=== PATIENT | female | born 1965 | race Caucasian/White ===

== ENCOUNTER → 2018-03-27 | Outpatient (CLI) | payer BC ==
[~2018-03-27] MED LIST: AMITRIPTYLINE H10 M1 PO; CIPRO250 M1 PO; CITRATE OF MAG296 ML PO; IBUPROFEN 200200 M1 PO; MACROBID 100 M100 M1 PO; MOBIC15 MG PO
== END ==
LOC: RAD 16:47
DX: M17.11 Unilateral primary osteoarthritis, right knee (principal); E66.01 Morbid (severe) obesity due to excess calories; Z88.6 Allergy status to analgesic agent

== ENCOUNTER 2019-06-03 19:55 | Emergency (ER) | payer BC ==
[~2019-06-03] VITALS: Ht 157.5 cm; Wt 103.0 kg
[~2019-06-03 19:55] MED LIST changes: +ASPIR 8181 MG PO; +NEURONTIN 300300 M1 PO; +TYLENOL325 MG PO
[2019-06-03] MEDS ORDERED: ALEVE220 MG PO (20:04)
[2019-06-03] MEDS ORDERED: MUPIROCIN22 GM (20:05)
[2019-06-03] MEDS ORDERED: OXYCODONE-APAP1 EAC4 PO (20:05)
[2019-06-03 20:36] LABS: ABSOLUTE NEUTROPHILS 2.8 thou/uL (1.4-8.2); BASOPHILS 1.4 % (0.0-2.0); EOSINOPHILS 8.1 % (0.0-3.0); HEMATOCRIT 36.6 % (37.0-47.0); HEMOGLOBIN 12.1 gm/dL (12.0-15.0); LYMPHOCYTES 33.7 % (24.0-44.0); MCH 29.2 pg (26.0-34.0); MCHC 32.9 g/dL (28.0-37.0); MCV 88.7 fL (80.0-100.0); MONOCYTES 8.2 % (1.0-8.0); POLYS 48.6 % (36.0-66.0); RBC 4.13 mil/uL (4.20-5.00); WBC 5.7 thou/uL (4.0-11.0)
[2019-06-03 20:48] LABS: CALCIUM 9.4 mg/dL (8.5-10.1); CREATININE 0.8 mg/dL (0.6-1.0); POTASSIUM 3.8 mmol/L (3.5-5.1)
[2019-06-03] MEDS ORDERED: DOXYCYCLINE 10100 MG PO (20:55)
[2019-06-03] MEDS ORDERED: PREDNISONE 20 M20 MG PO (20:55)
[2019-06-03 20:58] LABS: PLATELET COUNT 163 thou/uL (150-400)
[2019-06-03 22:03] VITALS: BP 151/83
== END 2019-06-03 22:06 | disposition home or self-care (01) ==
LOC: ER 19:55
PROVIDERS: Nurse Practitioner Family
DX: M25.561 Pain in right knee (principal); R21 Rash and other nonspecific skin eruption; Z90.49 Acquired absence of other specified parts of digestive tract; Z90.710 Acquired absence of both cervix and uterus; Z88.6 Allergy status to analgesic agent

== ENCOUNTER → 2020-11-07 | Outpatient (CLI) | payer BC ==
[~2020-11-07] MED LIST changes: +ALEVE220 MG PO; +DOXYCYCLINE 10100 MG PO; +MUPIROCIN22 GM; +OXYCODONE-APAP1 EAC4 PO; +PREDNISONE 20 M20 MG PO
== END ==
LOC: LAB 13:44
PROVIDERS: ATTEND Orthopaedic Surgery
DX: Z01.812 Encounter for preprocedural laboratory examination (principal); Z20.822 Contact with and (suspected) exposure to COVID-19

== ENCOUNTER 2020-11-12 10:41 | Inpatient (IN) | payer BC ==
[2020-11-07 13:16] LABS: HEMATOCRIT 43.5 % (37.0-47.0); HEMOGLOBIN 14.3 gm/dL (12.0-15.0); MCH 28.8 pg (26.0-34.0); MCHC 32.8 g/dL (28.0-37.0); MCV 87.8 fL (80.0-100.0); RBC 4.96 mil/uL (4.20-5.00); RDW 13.3 % (10.5-14.5); WBC 5.8 thou/uL (4.0-11.0)
[2020-11-07 13:20] LABS: URINE BILIRUBIN NEGATIVE (Negative); URINE BLOOD NEGATIVE (Negative); URINE CLARITY CLEAR; URINE COLOR YELLOW; URINE GLUCOSE-RANDOM* NEGATIVE (Negative); URINE KETONES TRACE (Negative); URINE LEUKOCYTES-REFLEX NEGATIVE (Negative); URINE NITRITE-REFLEX NEGATIVE (Negative); URINE PROTEIN (DIPSTICK) NEGATIVE (Negative); URINE SPECIFIC GRAVITY 1.015 (1.005-1.035); URINE UROBILINOGEN 0.2 E.U./dl (0.2-1.0)
[2020-11-07 13:27] LABS: ALBUMIN 3.8 g/dL (3.4-5.0); CALCIUM 8.9 mg/dL (8.5-10.1); POTASSIUM 3.9 mmol/L (3.5-5.1); PROTIME 11.2 Seconds (9.3-11.4)
--- NOTE | 2020-11-07 13:27 | EKG ---
[place] [address] [facility] [place] [address] ELECTROCARDIOGRAM REPORT Name: ALLEY CUELLAR Room #: PRE [facility] M.R.#: [id number] Admission: Attend Phys: Dayron Yeager MD Discharge: Date of : 69 Report #: [id number] [facility] Test Date: 2020-11-07 Test Time: 13:16:55 Pat Name: ALLEY CUELLAR Department: Room: Gender: F Digital Printer Operator: Aminah KRISHNAN : 1965 Requested By: Dayron Yeager Order Number: [id number] MD: Memo Carolina Measurements Intervals [place] Rate: 66 P: 18 MA: 165 QRS: 40 QRSD: 95 T: 31 QT: 406 QTc: 426 Interpretive Statements Sinus rhythm J Point elev, probable normal early repol pattern Compared to ECG 04/30/2019 12:55:12 ST (T wave) deviation now present Sinus bradycardia no longer present Electronically Signed On 11-07-2020 13:27:10 SLUICE TENDER by Memo Carolina [email or web address] <ELECTRONICALLY SIGNED> By: Memo Carolina MD, [facility] 11/07/20 1327 15 15 Memo Carolina MD, FACC /EPI
[~2020-11-12] VITALS: Ht 157.5 cm; Wt 113.4 kg
[2020-11-12 11:25] VITALS: BP 142/92
[2020-11-12 19:00] VITALS: BP 131/80
[2020-11-12 20:00] VITALS: BP 111/56
[2020-11-12 21:00] VITALS: BP 153/92
[2020-11-13 04:37] VITALS: BP 121/58
[2020-11-13 05:31] LABS: HEMATOCRIT 39.2 % (37.0-47.0); HEMOGLOBIN 12.5 gm/dL (12.0-15.0); MCH 28.4 pg (26.0-34.0); MCHC 31.9 g/dL (28.0-37.0); RBC 4.4 mil/uL (4.20-5.00); RDW 13.3 % (10.5-14.5); WBC 12.1 thou/uL (4.0-11.0)
[2020-11-13 07:58] VITALS: BP 103/62
[2020-11-13 10:25] VITALS: BP 103/62
[2020-11-13] MEDS ORDERED: BAYER CHEWABLE81 MG PO (10:33)
[2020-11-13] MEDS ORDERED: PERCOCET PO (10:33)
[2020-11-13] MEDS ORDERED: NEURONTIN 300M300 M2 PO (10:34)
--- NOTE | 2020-11-13 10:38 | O ---
[facility] [place] [address] OPERATIVE REPORT Name: ALLEY CUELLAR Room #: 447-P [facility] M.R.#: [id number] Admission: 11/12/20 Attend Phys: Dayron Yeager MD Discharge: Date of : 69 Report #: [id number] THIS REPORT FOR: cc: Rogerio Rosado,Rogerio Nash,Dayron Huerta MD ~ DATE OF SERVICE: 11/12/2020 PREOPERATIVE DIAGNOSES: Right total knee arthroplasty, aseptic loosening. POSTOPERATIVE DIAGNOSES: Right total knee arthroplasty, aseptic loosening. PROCEDURE: Revision of right total knee arthroplasty, all components. SURGEON: Dayron Yeager MD. ANESTHESIA: LMA with an adductor canal block. IMPLANTS: [employer]hew size 4 Legion Oxinium revision femoral component with a 4 mm offset development officer and a 16 x 160 mm stem, a size 3 revision tibial tray with a 4 mm offset development officer and a 14 x 160 mm stem, a size 10 mm medial tibial wedge, a size 9 constrained polyethylene and a size 35 patella. TOURNIQUET TIME: 131 minutes. ESTIMATED BLOOD LOSS: 50 mL. COMPLICATIONS: None. SPECIMENS: Intraoperative frozen section was taken and found to have 2-4 neutrophils per high power field and intraoperative cultures were taken and sent. CONDITION UPON LEAVING THE OPERATING ROOM: Stable. INDICATIONS FOR PROCEDURE: The patient is a 55-year-old female, who is about a year and a half to 2 years out from a right total knee arthroplasty. She initially did well with this; however, has had increased knee pain and stiffness. Workup for infection was negative. Bone scan revealed increased uptake around the femur and the tibia and it was felt that she had aseptic loosening of her prosthesis. After discussion with her, she elected for revision total knee arthroplasty. DESCRIPTION OF PROCEDURE: Risks, benefits, alternatives, complications were discussed in detail with the patient including but not limited to risk of [facility] [address] [place] [address] OPERATIVE REPORT Name: ALLEY CUELLAR Room #: 447-P [facility] M.R.#: [id number] Admission: 11/12/20 Attend Phys: Dayron Yeager MD Discharge: Date of : 69 Report #: [id number] anesthesia, risk of damage to nerves, arteries, blood vessels, risk for infection, bleeding, risk for continued knee pain, need for reoperation. Informed consent was obtained from the patient. The right knee was appropriately marked in the preoperative holding area. IV Ancef was given for preoperative antibiotics. She was brought to the operating room and placed in the supine position on the operating room table. LMA anesthesia was induced without complication. Tourniquet was placed on the right thigh. Right lower extremity was prepped and draped in normal sterile fashion. Timeout was performed properly identifying the patient and procedure as well as the instrumentation and implants. All in the operating room were in agreement. Right lower extremity was exsanguinated, tourniquet was inflated. Tourniquet time was 131 minutes. Previous scar was then opened with a 10 blade through the skin. Dissection was taken down sharply to the fascia and deep flaps were developed medially and laterally. Fresh 10 blade was used to make a medial parapatellar arthrotomy. There was normal -appearing joint fluid. Cultures of this were taken x2 and sent. Medial and lateral gutters were reestablished and the polyethylene was removed with an osteotome. Attention was turned to the femur and dissection was made between the implant and cement interface with osteotomes. The femoral component came off with slight difficulty and it was felt that perhaps there was aseptic loosening of the component itself. Attention was turned to the tibia. Tibial was much more difficult to remove and we spent a large amount of time and effort dissecting around the tibia using osteotomes in order to remove the tibial baseplate. Upon final removal of the tibial baseplate, there was noted to be a fracture of the posterior third of the tibial plateau and it was felt that we could put a cerclage tape around this area to reduce and hold the fracture in place. An Arthrex cerclage tape was then placed circumferentially around the proximal tibia and tightened down. After this, the tibial canal was sequentially reamed up to a size 14, at which point, the size 14 reamer was stable. A cleanup cut was made using the tibial resection guide. Tibia was sized, found to be a size 4, so a size 4 fit best with a 4 mm offset development officer in the 11 o'clock position. There was significant medial loss of bone secondary to removal of bone with extraction of the tibial base plate and so a 10 mm weston-wedge was used on the tibial component. Tibial trial was built and placed on the tibia. Attention was turned to the femur. This was reamed up to a size 16, at which point, the size 16 reamer was stable. This was sized and found to be a size 4 mm offset development officer at 6 o'clock position. Cleanup distal femoral cut was made and then chamfer cuts and anterior and posterior cuts were made. A femoral trial was then placed. This was then trialed with a size 9 constrained polyethylene and size 9 demonstrated the best stability throughout flexion, both medially and laterally. The previous patellar button was then removed with oscillating saw and cleanup cut of the patella was performed. A size 35 patellar trial button was placed. Knee was taken through range of motion, found to be stable, found to have good patellar tracking. Trial components were removed. Bony ends were thoroughly irrigated with normal saline. The final implants were opened and assembled on the back [address] [address] OPERATIVE REPORT Name: ALLEY CUELLAR Room #: 447-P [facility] Isai Saenz#: [id number] Admission: 11/12/20 Attend Phys: Dayron Yeager MD Discharge: Date of : 69 Report #: [id number] table and cemented in place using standard cementation techniques. While the cement cured, a periarticular injection consisting of morphine, ropivacaine, epinephrine and Toradol was placed around the knee joint capsule. After the cement cured, tourniquet was deflated. Hemostasis was obtained with Bovie cautery. A final size 9 constrained polyethylene was placed. A gram of vancomycin was placed deep in the joint. Fascia was closed with 0 Vicryl, skin was closed with 2-0 Vicryl, skin staple and a SHIRA dressing was applied. The patient tolerated this procedure well and went to the recovery room under the care of Anesthesia postoperatively. <ELECTRONICALLY SIGNED> By: Dayron Yeager MD 11/13/20 1038 1743 1812 Dayron Yeager MD /nt
[2020-11-13] MEDS ORDERED: OXYCODONE HCL E10 MG PO (10:43)
[2020-11-13 16:55] VITALS: BP 102/56
[2020-11-13 19:42] VITALS: BP 119/67
[2020-11-14 04:41] LABS: HEMATOCRIT 34.9 % (37.0-47.0); HEMOGLOBIN 11.4 gm/dL (12.0-15.0); MCH 29.1 pg (26.0-34.0); MCHC 32.8 g/dL (28.0-37.0); MCV 88.8 fL (80.0-100.0); RBC 3.93 mil/uL (4.20-5.00); RDW 13.5 % (10.5-14.5); WBC 8.1 thou/uL (4.0-11.0)
[2020-11-14 04:54] VITALS: BP 138/74
[2020-11-14 07:25] VITALS: BP 127/76
[2020-11-14 10:25] VITALS: BP 127/76
[2020-11-14 10:30] VITALS: BP 127/76
--- NOTE | 2020-11-14 16:06 | PATH ---
[facility] [place] [place] [address] PATHOLOGY RPT PROCEDURE Name: ALLEY CUELLAR Room #: 447-P [facility] M.R.#: [id number] Admission: 11/12/20 Date of : 69 Discharge: 11/14/20 Report #: [id number] Path Case #: [id number] [facility] Accession Number: [id number] . 01 Material submitted: . knee - RIGHT SYNOVIAL TISSUE. Modifiers: right . 01 Clinical history: . PRESENCE OF RIGHT ARTIFICIAL KNEE JOINT UNILATERAL PRIMARY OSTEOARTHRITIS RIGHT KNEE . 02 Frozen section diagnosis: . FROZEN SECTION DIAGNOSIS (Dr. Shruti Richard) . FSA1. Right synovial tissue, biopsy: - Several high-power joe with 2-3 neutrophils and nuclear debris; cannot exclude margination. None greater than 5 neutrophils per HPF. . These findings are discussed with Dr. Dayron Yeager in OR-5, and a written report is placed in the patient's chart. . . FROZEN SECTION GROSS DESCRIPTION Specimen is received fresh from the OR labeled with the patient's name, and "right synovial tissue", consists of multiple white to red-carver fragments of tissue measuring an aggregate of 5 x 3 x 0.5 cm. The evident synovial surface is shaved and submitted for frozen section as FSA1, this is subsequently submitted for permanent sections as A1. The remainder of the tissue is submitted for permanent sections only as A2 and A3. (IUV:county engineer; 11/12/2020) . Frozen section performed at [facility], [address] [place] [address]. IZV/MBR . 02 Diagnosis: Synovium, right synovial tissue, biopsy: - Reactive synovial hyperplasia associated with moderate dense chronic inflammation and giant cells as well as reparative changes. - Negative for acute inflammation (none greater than 5 neutrophils per high power field). (IUV/db; 11/14/2020) LBQ 11/14/2020 1537 Local . 02 Electronically signed: . Shruti Richard MD, Pathologist [address] [place] [address] PATHOLOGY RPT PROCEDURE Name: ALISAALLEY BANKS Room #: 447-P [facility] M.R.#: [id number] Admission: 11/12/20 Date of : 69 Discharge: 11/14/20 Report #: [id number] Path Case #: [id number]- [id number] . 03 Gross description: . PLEASE SEE GROSS DESCRIPTION UNDER FROZEN SECTION DIAGNOSIS. /MBR 11/13/2020 1424 Local . 02 Pathologist provided ICD-10: M65.9 . 02 CPT . 157062, [id number] Specimen Comment: A courtesy copy of this report has been sent to [phone] Specimen Comment: [phone] Specimen Comment: Report sent to / Performed at: [address] [facility], [place], [place] [id number] MD William Tobar MD Phone: [phone] Performed at: [address] [id number] MD Shruti Richard MD Phone: [phone] Performed at: [address] [facility], [place], [place] [id number] MD Dov Blanton MD Phone: [phone]
== END 2020-11-14 13:25 | disposition home health service (06) | DRG 468 ==
LOC: OR 10:41 → 4S 17:54 → OR 17:55 → 4S 11-14 13:25
PROVIDERS: ADMIT Orthopaedic Surgery; ATTEND Orthopaedic Surgery
PROC: 0SPC0JZ Removal of Synthetic Substitute from Right Knee Joint, Open Approach (ICD-10-PCS; principal; 2020-11-12)
PROC: 0SRC069 Replacement of Right Knee Joint with Oxidized Zirconium on Polyethylene Synthetic Substitute, Cemented, Open Approach (ICD-10-PCS; principal; 2020-11-12)
DX: T84.032A Mechanical loosening of internal right knee prosthetic joint, initial encounter (principal); Z88.6 Allergy status to analgesic agent; Y83.8 Other surgical procedures as the cause of abnormal reaction of the patient, or of later complication, without mention of misadventure at the time of the procedure; Y92.89 Other specified places as the place of occurrence of the external cause
CPT/HCPCS: 10102; 50010; 50101; 50415; 50954; 51130; 51225; 51320; 51412; 52001; 52282; 53000; 53078; 56528; 57095; 57103; 57116; 57181; 57982; 57984; 57985; 58138; 58380; 58384; 58413; 62110; 62900; 70005

== ENCOUNTER → 2020-12-30 | Outpatient (CLI) | payer BC ==
[~2020-12-30] MED LIST changes: +ASA81BEC PO; +BAYER CHEWABLE81 MG PO; +NEURONTIN 300M300 M2 PO; +NORCO5 PO; +OXYCODONE HCL E10 MG PO; +PERCOCET PO
== END ==
LOC: LAB 08:04
PROVIDERS: Student in an Organized Health Care Education/Training Program; ATTEND Orthopaedic Surgery
DX: Z01.812 Encounter for preprocedural laboratory examination (principal); Z20.822 Contact with and (suspected) exposure to COVID-19